=== PATIENT | female | born 1935 | race Caucasian/White ===

== ENCOUNTER 2021-10-21 13:21 | Emergency (ER) | payer MEDICARE ==
[~2021-10-21] VITALS: Ht 152.4 cm; Wt 71.7 kg
[2021-10-21] MEDS ORDERED: IV NS 0.9% 500 ML BAG IV ONE (13:30)
[2021-10-21] MEDS ORDERED: LOVA20TA2 PO (13:41)
[2021-10-21] MEDS ORDERED: ATEN25TA PO (13:41)
[2021-10-21] MEDS ORDERED: HYDR12.55 PO (13:41)
[2021-10-21 13:45] LABS: BASOPHILS % (AUTO) 0.3 % (0.0-2.0); EOSINOPHILS % (AUTO) 1.2 % (0.0-6.0); HEMATOCRIT 36 % (33-45); HEMOGLOBIN 12.2 g/dL (11.5-14.8); LYMPHOCYTES # (AUTO) 1.9 K/uL (0.8-4.8); LYMPHOCYTES % (AUTO) 25.3 % (20.0-44.0); MEAN CORPUSCULAR HGB CONC 34 g/dl (31.0-36.0); MEAN CORPUSCULAR VOLUME 87 fL (82-100); MONOCYTES # (AUTO) 0.9 K/uL (0.1-1.30); MONOCYTES % (AUTO) 11.8 % (2.0-12.0); NEUTROPHILS # (AUTO) 4.6 K/uL (1.8-8.9); NEUTROPHILS % (AUTO) 61.4 % (43.0-81.0); PLATELET COUNT (AUTO) 223 K/uL (150-450); RED BLOOD CELL COUNT(AUTO) 4.18 MIL/uL (4.0-5.2); WHITE BLOOD COUNT (AUTO) 7.6 K/uL (4.3-11.0)
[2021-10-21] MEDS ORDERED: PROP15DR EACHEYE (13:48)
[2021-10-21] MEDS ORDERED: ASPI-1169 PO (13:48)
[2021-10-21] MEDS ORDERED: OLME20TA23 PO (13:48)
[2021-10-21 14:21] LABS: SERUM AMMONIA 14 umol/L (11-32)
[2021-10-21 14:32] LABS: CALCIUM, SERUM 8.2 mg/dL (8.5-10.1); CARBON DIOXIDE 27 mmol/L (21-32); CHLORIDE 102 mmol/L (98-107); GLUCOSE 138 mg/dL (74-106); POTASSIUM 3.2 mmol/L (3.5-5.1); SODIUM SERUM 139 mmol/L (136-145); UREA NITROGEN, BLOOD 15 mg/dL (7-18)
[2021-10-21 14:33] LABS: THYROID STIMULATING HORMONE 0.901 uIU/mL (0.358-3.74)
[2021-10-21 14:37] LABS: ALANINE AMINOTRANSFERASE 22 U/L (12-78); ALBUMIN 3.7 g/dL (3.4-5.0); ALCOHOL, BLOOD < 3 mg/dL (0-0); ALKALINE PHOSPHATASE 43 U/L (46-116); ASPARTATE AMINOTRANSFERASE 20 U/L (15-37); BILIRUBIN,DIRECT 0.2 mg/dL (0.0-0.2); BILIRUBIN,TOTAL 0.6 mg/dL (0.2-1.0); TOTAL PROTEIN, SERUM 6.5 g/dL (6.4-8.2)
[2021-10-21 15:25] LABS: BILIRUBIN,URINE NEGATIVE (NEGATIVE); COLOR,URINE YELLOW (YELLOW); LEUKOCYTE ESTERASE ,URINE NEGATIVE (NEGATIVE); NITRITE, URINE NEGATIVE (NEGATIVE); PROTEIN,URINE NEGATIVE (NEGATIVE); UGLUCOSE NEGATIVE (NEGATIVE); UROBILINOGEN,URINE 0.2 EU/dL (0.2)
[2021-10-21 15:52] LABS: BACTERIA,URINE 1+ /HPF (None Seen); WBC,URINE 0-2 /HPF (0-3)
[2021-10-21 16:54] VITALS: BP 137/84
== END 2021-10-21 16:54 | disposition home or self-care (01) ==
LOC: ER 13:23
DX: T40.721A Poisoning by synthetic cannabinoids, accidental (unintentional), initial encounter (principal); G92.8 Other toxic encephalopathy; Y92.010 Kitchen of single-family (private) house as the place of occurrence of the external cause; Z20.822 Contact with and (suspected) exposure to COVID-19; E78.5 Hyperlipidemia, unspecified; I10 Essential (primary) hypertension; Z79.899 Other long term (current) drug therapy
CPT/HCPCS: 99285; 96360; 93005; 71045; 70450; 82140; 85025; 80048; 87040 ×2; 87086; 83605; 80076; 81001; 36415; 84443; 84484; 85730; 87081; 87426; 80143; 80320; 80307; J7040; C9803; G0480